=== PATIENT | male | born 1980 | race Caucasian/White ===

== ENCOUNTER 2017-02-15 19:14 | Emergency (ER) | payer BC ==
[2017-02-15 19:25] VITALS: BP 136/72; PULSE 94; RESP 16; O2SAT 95
[2017-02-15 19:46] VITALS: TEMP 98.1
--- NOTE | 2017-02-15 19:56 | UCPHY ---
H & P Time Seen by Provider: 02/15/17 19:37 Patient Type: New HPI/ROS: This patient describes a history of reactive airway disease after pneumonia that developed while he still lives in [place] in November. He moved to [place] on December and reports intermittent wheezing symptoms improved with albuterol. He has had mild wheezing recently and has been starting to use albuterol inhaler which is nearly empty now. He has an appointment to see a new primary care physician here in 3 weeks and requests a albuterol refill. He reports the wheezing is mild. ROS: No fevers chills. HEENT: Minimal coryza. Pulmonary: No significant cough. No pleuritic pain. No significant dyspnea. Cardiovascular: No chest pain. No leg swelling or pain. 7 point ROS is otherwise negative. Smoking Status: Never smoked Physical Exam: Physical Exam Vital signs are normal. General: No acute distress HEENT: Nose: clear bilaterally. No sinus tenderness to percussion. Ears: External canals and tympanic membranes are clear with no erythema or abnormal findings bilaterally. Oropharynx: No erythema or exudates. No dysphonia. No drooling or stridor. Eyes: Pupils equal and react to light. Extraocular motions are intact. Lungs: Clear to auscultation bilaterally with no rales, rhonchi or wheeze. No respiratory distress. Cardiac: Regular rate and rhythm with no murmur gallop or rub Skin: No rash or pallor. Neuro: Alert with no focal deficits noted. Constitutional: Initial Vital Signs Temperature (C) 36.7 C 02/15/17 19:19 Heart Rate 94 02/15/17 19:19 Respiratory Rate 16 02/15/17 19:19 Blood Pressure 136/72 H 02/15/17 19:19 O2 Sat (%) 95 02/15/17 19:19 O2 Delivery Mode Room Air Allergies/Adverse Reactions: No Known Allergies Allergy (Unverified 02/15/17 19:25) Home Medications: Medication Instructions Recorded ALBUTEROL SULFATE 02/15/17 Albuterol Hfa Anes Only [Proair 2 puffs IH Q4 PRN #1 mdi 02/15/17 Hfa Icu (*)] Fluticasone Hfa 220 Mcg [Flovent 2 puffs IH DAILY #1 mdi 02/15/17 220 MCG Hfa MDI (*)] LaMICtal 02/15/17 MDM/Departure - MDM Diagnostics: Patient's peak flow was only slightly lower than anticipated. ED Course/Re-evaluation: I counseled the patient regarding reactive airway disease. Will provide of Flovent and albuterol inhaler with spacer script. - Depart Disposition: Home, Routine, Self-Care Clinical Impression: Reactive airway disease Qualifiers: Asthma severity: mild intermittent Asthma complication type: uncomplicated Qualified Code(s): J45.20 - Mild intermittent asthma, uncomplicated Condition: Good Instructions: Reactive Airways Disease (ED) Additional Instructions: Diagnosis: reactive airway disease (Mild, intermittent) Plan: Humidifier Albuterol inhaler with spacer for cough, wheeze or shortness of breath Flovent steroid inhaler Follow-up with primary care physician Return here or to the emergency department for any significant worsening despite treatment plan. Prescriptions: Albuterol Hfa Anes Only [Proair Hfa Icu (*)] 2 puffs IH Q4 PRN #1 mdi PRN Reason: Wheezing Fluticasone Hfa 220 Mcg [Flovent 220 MCG Hfa MDI (*)] 2 puffs IH DAILY #1 mdi Referrals: NONE *PRIMARY CARE P,. [Primary Care Provider] - As per Instructions - PQRS PQRS Measurement: NA
== END 2017-02-15 20:08 | disposition home or self-care (01) ==
LOC: CED 19:14
DX: J45.20 Mild intermittent asthma, uncomplicated (principal)
CPT/HCPCS: G0463-PO